=== PATIENT | male | born 1945 | race Caucasian/White ===

== ENCOUNTER 2016-12-04 07:02 | Day surgery (SDC) | payer BC ==
--- NOTE | ~2016-12-04 | EGD ---
EGD REPORT [facility] [address] [id number] NAME: PETER EMERSON : [birth year] STATUS : REG [facility]#: [id number] AGE: 71 ADM/REG DATE : 12/04/16 MR#: [id number] REPORT SERV DATE: 12/04/16 DICTATED BY: CYNDEE MALIK DATE: 12/04/16 REPORT STATUS : Draft TRANSCRIBED BY: [facility] DATE: 12/04/16 [facility] Center Patient Name: Peter Emerson Date of : 1945 Attending MD: MELANIE MALIK MD Procedure Date No Time: 12/04/2016 Procedure: Upper GI endoscopy Indications: Follow-up of Brasher's esophagus Referring MD: Semaj Malhotra Medicines: See the Anesthesia note for documentation of the administered medications Complications: No immediate complications. Estimated blood loss: Minimal. Procedure: Pre-Anesthesia Assessment: - ASA Grade Assessment: IV - A patient with severe systemic disease that is a constant threat to life. - Prior to the procedure, a History and Physical was performed, and patient medications and allergies were reviewed. The patient's tolerance of previous anesthesia was also reviewed. The risks and benefits of the procedure and the sedation options and risks were discussed with the patient. All questions were answered, and informed consent was obtained. Prior Anticoagulants: The patient has taken anticoagulant medication, last dose was 2 days prior to procedure. After reviewing the risks and benefits, the patient was deemed in satisfactory condition to undergo the procedure. - Prior to the procedure, a History and Physical was performed, and patient medications and allergies were reviewed. The patient's tolerance of previous anesthesia was also reviewed. The risks and benefits of the procedure and the sedation options and risks were discussed with the patient. All questions were answered, and informed consent was obtained. Prior Anticoagulants: The patient has taken aspirin, last dose was day of procedure. After reviewing the risks and benefits, the patient was deemed in satisfactory condition to undergo the procedure. After obtaining informed consent, the endoscope was passed under direct vision. Throughout the procedure, the patient's blood pressure, pulse, and oxygen saturations were monitored continuously. The GIF [id number] was introduced through the mouth, and advanced to the third part of duodenum. The upper GI endoscopy EGD REPORT [facility] [id number] [place]. [address] NAME: PETER EMERSON : [birth year] STATUS : REG [facility]#: [id number] AGE: 71 ADM/REG DATE : 12/04/16 MR#: [id number] REPORT SERV DATE: 12/04/16 DICTATED BY: CYNDEE MALIK DATE: 12/04/16 REPORT STATUS : Draft [facility] BY: [facility] DATE: 12/04/16 was accomplished without difficulty. The patient tolerated the procedure well. Findings: The examined duodenum was normal. The entire examined stomach was normal. The cardia and gastric fundus were normal on retroflexion. There were esophageal mucosal changes consistent with short-segment Brasher's esophagus present in the lower third of the esophagus. The maximum longitudinal extent of these mucosal changes was 2 cm in length. Mucosa was biopsied with a cold forceps for histology multiple in the lower third of the esophagus. One specimen bottle was sent to pathology. Estimated blood loss was minimal. No other significant abnormalities were identified in a careful examination of the esophagus. Impression: - Normal examined duodenum. - Normal stomach. 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 Biopsied. Recommendation: - Patient has a contact number available for emergencies. The signs and symptoms of potential delayed complications were discussed with the patient. Return to normal activities tomorrow. Written discharge instructions were provided to the patient. - Regular diet. - Discharge patient to home. - Continue present medications. - Await pathology results. - Repeat the upper endoscopy in 3 years for surveillance. - Make sure you restart Eliquis today Procedure Code(s): --- Professional --- 81035, Esophagogastroduodenoscopy, flexible, transoral; with biopsy, single or multiple Diagnosis Code(s): --- Professional --- K22.70, Brasher's esophagus without dysplasia CPT copyright 2013 [employer]. All rights reserved. The codes documented in this report are preliminary and upon surgical coder review may be revised to meet current compliance requirements. MELANIE MALIK MD EGD REPORT [facility] [address] [address] NAME: PETER EMERSON : [birth year] STATUS : REG [facility] PAT#: [id number] AGE: 71 ADM/REG DATE : 12/04/16 MR#: [id number] REPORT SERV DATE: 12/04/16 DICTATED BY: CYNDEE MALIK DATE: 12/04/16 REPORT STATUS : Draft TRANSCRIBED BY: [employer] DATE: 12/04/16 12/04/2016 9:02 AM This report has been signed electronically. Number of Addenda: 0 Note Initiated On: 12/04/2016 7:34 AM Scope Withdrawal Time 0 hours 0 minutes 0 seconds [address] [id number]
[~2016-12-04 07:02] MED LIST: AMARYL4 PO; ASA5GR PO; ASAB PO; CO Q-10100 MG PO; CORDARONE PO; CRESTOR10 PO; ELIQUIS 5 MG TAB5 MG PO; ENDOCET1 TAB PO; FISH-EPA1000 MG PO; GLUCOV5 PO; JANTOVEN5 MG PO; JANUMET1 TAB PO; L20 PO; L40 PO; LANTUSCART SC; LOP25 PO; MICROZIDE PO; MULTIPLE VIT PO; NIASPAN500 PO; PLAVIX PO; PRIN10 PO; PRIN20 PO; SPIRO25 PO; TOPXL25 PO; TOPXL50 PO; TRADJENTA5 MG PO; Z100 PO; ZANTAC150 MG PO
[2017-04-16] MEDS ORDERED: AMB10 PO (10:50)
[2017-04-16] MEDS ORDERED: NTG150 SL (10:51)
== END 2016-12-04 23:59 | disposition home or self-care (01) ==
LOC: DMU 07:02
PROVIDERS: Internal Medicine Gastroenterology
PROC: 0DB38ZX Excision of Lower Esophagus, Via Natural or Artificial Opening Endoscopic, Diagnostic (ICD-10-PCS; principal; 2016-12-04 09:00)
DX: K22.70 Barrett's esophagus without dysplasia (principal); E11.9 Type 2 diabetes mellitus without complications; H91.90 Unspecified hearing loss, unspecified ear; K57.92 Diverticulitis of intestine, part unspecified, without perforation or abscess without bleeding; I25.10 Atherosclerotic heart disease of native coronary artery without angina pectoris; I11.0 Hypertensive heart disease with heart failure; I50.9 Heart failure, unspecified; I51.7 Cardiomegaly; M10.9 Gout, unspecified; Z90.49 Acquired absence of other specified parts of digestive tract; Z95.5 Presence of coronary angioplasty implant and graft; Z95.810 Presence of automatic (implantable) cardiac defibrillator; Z79.899 Other long term (current) drug therapy; Z79.82 Long term (current) use of aspirin
CPT/HCPCS: 82962; 88305